=== PATIENT | male | born 1965 | race Caucasian/White ===

== ENCOUNTER 2016-08-06 10:36 | Inpatient (IN) | payer OTHER ==
[~2016-08-06] VITALS: Ht 177.8 cm; Wt 97.1 kg
[2016-08-06 11:36] LABS: BASOPHIL % 0.5 % (0-2); PLATELET COUNT 254 x10^3mcL (130-400); RED CELL DISTRIBUTION WIDTH 13.8 % (11.5-14.5)
[2016-08-06 11:37] LABS: microscopic required? NO
[2016-08-06 11:42] LABS: CALCIUM 8.7 mg/dL (8.5-10.1); CARBON DIOXIDE 25.5 mmol/L (21-32); CHLORIDE SERUM 105 mmol/L (98-107); CREATININE SERUM 0.9 mg/dL (0.7-1.3); GFR1 > 60 mL/min; GLUCOSE SERUM 125 mg/dL (74-106); POTASSIUM SERUM 4.1 mmol/L (3.5-5.1); SODIUM SERUM 139 mmol/L (136-145)
[2016-08-06 11:46] LABS: ALBUMIN 3.9 g/dL (3.4-5.0); ALKALINE PHOSPHATASE 74 U/L (46-116); ALT/SGPT 35 U/L (16-63); AST/SGOT 20 U/L (15-37); BILIRUBIN TOTAL 0.92 mg/dL (0.20-1.00); TOTAL PROTEIN, SERUM 7.3 g/dL (6.4-8.2)
[2016-08-06 12:07] LABS: urine erythrocyte NEGATIVE (NEGATIVE)
[2016-08-06 13:42] LABS: CHOLESTEROL/HDL RATIO 4.7; MAGNESIUM 2.1 mg/dL (1.8-2.4); PHOSPHOROUS 3.3 mg/dL (2.5-4.9)
[2016-08-06 13:43] VITALS: BP 148/88
[2016-08-06 13:49] LABS: T3 TOTAL 1.06 ng/mL
[2016-08-06 13:56] LABS: FREE T4 0.92 ng/dL (0.76-1.46); T4(THYROXINE) 6.4 ug/dL (4.7-13.3)
[2016-08-06 13:57] LABS: AMPHETAMINE QUAL UR NONE DETECTED (NEG <=1000)
[2016-08-06 14:15] VITALS: Ht 177.8 cm; Wt 97.1 kg
[2016-08-06 15:02] VITALS: BP 138/88
[2016-08-06 18:24] VITALS: BP 156/88
[2016-08-06 20:30] VITALS: BP 125/90
[2016-08-07 06:30] VITALS: BP 109/79
[2016-08-07 06:58] LABS: BASOPHIL % 0.7 % (0-2); PLATELET COUNT 203 x10^3mcL (130-400); RED CELL DISTRIBUTION WIDTH 13.7 % (11.5-14.5)
[2016-08-07 07:06] LABS: ALBUMIN 3.2 g/dL (3.4-5.0); CARBON DIOXIDE 27.5 mmol/L (21-32); CHLORIDE SERUM 107 mmol/L (98-107); GFR1 > 60 mL/min; GLUCOSE SERUM 107 mg/dL (74-106); POTASSIUM SERUM 3.7 mmol/L (3.5-5.1); SODIUM SERUM 141 mmol/L (136-145)
[2016-08-07 09:23] VITALS: BP 138/87
[2016-08-07 13:07] VITALS: BP 126/66
[2016-08-07 16:43] VITALS: BP 131/96
[2016-08-07 20:41] VITALS: BP 127/77
[2016-08-08 05:14] VITALS: BP 116/76
[2016-08-08 07:02] LABS: CALCIUM 8.2 mg/dL (8.5-10.1); CARBON DIOXIDE 26.2 mmol/L (21-32); CHLORIDE SERUM 107 mmol/L (98-107); CREATININE SERUM 0.9 mg/dL (0.7-1.3); GFR1 > 60 mL/min; GLUCOSE SERUM 107 mg/dL (74-106); SODIUM SERUM 143 mmol/L (136-145)
[2016-08-08 07:05] LABS: BASOPHIL % 0.5 % (0-2); PLATELET COUNT 196 x10^3mcL (130-400); RED CELL DISTRIBUTION WIDTH 13.4 % (11.5-14.5)
[2016-08-08 07:09] LABS: ALBUMIN 3.1 g/dL (3.4-5.0)
[2016-08-08 09:16] VITALS: BP 152/90
[2016-08-08] MEDS ORDERED: ATORVASTATIN CA40 M1 PO (15:16)
[2016-08-08] MEDS ORDERED: ZES10 PO (15:16)
[2016-08-08] MEDS ORDERED: ASP325 PO (15:17)
[2016-08-08 17:08] VITALS: BP 152/90
[2016-08-08 17:14] VITALS: BP 133/86
== END 2016-08-08 19:10 | DRG 65 ==
LOC: ED 10:36 → DU 12:32 → MU 12:32 → DU 13:08 → MU 08-07 07:38
PROVIDERS: Emergency Medicine; Family Medicine; ADMIT Family Medicine
DX: I63.9 Cerebral infarction, unspecified (principal); E44.0 Moderate protein-calorie malnutrition; G90.9 Disorder of the autonomic nervous system, unspecified; I10 Essential (primary) hypertension; E78.5 Hyperlipidemia, unspecified; E03.9 Hypothyroidism, unspecified; E83.51 Hypocalcemia; Z90.49 Acquired absence of other specified parts of digestive tract
CPT/HCPCS: 80307; 83880; 84439; 92610-GN; 97110-GP; 97116-GP; 97530-GP; J7030; Q0092